=== PATIENT | female | born 1940 | race Caucasian/White ===

== ENCOUNTER → 2020-06-10 | Outpatient (CLI) | payer MEDICARE, SELFPAY ==
--- NOTE | 2020-06-10 11:20 | TISS_PTH ---
PATIENT: MAY[facility] MALIK [id number] AGE/SX: 80/F ROOM: RE06/10/[address]: Dr. Gabriel Bailey DDS : 1940 BED: DIS: 06/10/2020 SPEC #: [id number] RECD: 06/11/20 08:58 STATUS: LUCIANO EMELI #: [id number] DARIANA: 06/10/20 11:[address]: Gabriel Bailey DEPT: SURGICAL PATHOLOGY RECD BY: Jana Dubose Tissues: Mandible, NOS Procedures: Surgery Specimen Level IV HEADER OPERATION: Biopsy bone mandible PRE-OP DIAGNOSIS: Cyst/tumor/granulation tissue associated with impacted tooth TISSUE SUBMITTED: Right mandible MICROSCOPIC DIAGNOSIS Lesion of right mandible, biopsy: Granulation with associated acute and chronic inflammation. Reactive squamous epithelial changes. No evidence of malignancy. AM:lisa 06/14/20 COMMENT Clinical correlation is suggested MICROSCOPIC DESCRIPTION Slides are reviewed. The squamous mucosa shows reactive changes. GROSS DESCRIPTION Received is one container labeled with the patient's name and not further designated. The specimen consists of a piece of merritt mucosal tissue measuring 1.5 x 0.5 x 0.1 cm. The specimen is inked, bisected and submitted entirely in one cassette. / SJ:rg 06/11/20 TC:2 [facility]: [id number]
== END | disposition home or self-care (01) ==
PROVIDERS: Referring Provider Dentist Oral and Maxillofacial Surgery; Visit Provider Dentist Oral and Maxillofacial Surgery
DX: K13.4 Granuloma and granuloma-like lesions of oral mucosa (principal)
CPT/HCPCS: 88305

== ENCOUNTER 2020-10-22 10:56 | Outpatient (RCR) | payer MEDICARE, SELFPAY | END 2020-10-22 23:59 | LOC: IMMUN 10:56 | PROVIDERS: PCP Internal Medicine; Visit Provider Family Medicine | DX: Z23 Encounter for immunization (principal) | CPT/HCPCS: 0011A; 0012A; 91301 ==